=== PATIENT | female | born 1990 | race Caucasian/White ===

== ENCOUNTER → 2019-11-24 07:56 | Outpatient (BNVA) | payer BC, SELFPAY | PROVIDERS: Family Provider Family Medicine; Visit Provider Obstetrics & Gynecology | DX: Z01.89 Encounter for other specified special examinations (principal) ==

== ENCOUNTER → 2020-11-29 09:35 | Outpatient (BNVA) | payer BC, SELFPAY | PROVIDERS: Family Provider Family Medicine; Visit Provider Obstetrics & Gynecology | DX: Z12.4 Encounter for screening for malignant neoplasm of cervix (principal) | CPT/HCPCS: 88175 ==

== ENCOUNTER 2021-04-25 17:18 | Outpatient (CLI) | payer BC, SELFPAY ==
--- NOTE | 2021-04-25 17:30 | MR_ITS ---
WS: [id number] MRI RIGHT KNEE HISTORY: INTERNAL DERANGEMENT COMPARISON: None available. Anterior cruciate ligament: Intact. Posterior cruciate ligament: Intact. Medial collateral ligament: Very small amount of increased T2 signal within the superior MCL but no f ull-thickness tear. Posterior lateral corner structures: Intact. Medial menisci: Intact. Normal signal, size and shape. Lateral meniscus: Intact. Normal signal, size and shape. Extensor mechanism: Distal quadriceps tendon and patellar tendons are intact. Fluid and soft tissue: Small suprapatellar joint effusion. No Gerardo's cyst. Osseous and articular structures: Patellofemoral compartment: Very mild surface irregularity involving the cartilage of the patella. No marrow edema or full-thickness defect. Medial compartment: Mild narrowing medial compartment with surface irregularity of the weightbearing surface along the femoral condyle cartilage. There is a additional increased T2 signal extending thro ugh the cartilage of the femoral condyle. Probably a focal area demyelination. There is no underlying marrow edema. Lateral compartment: Unremarkable. MR/MR knee RT wo con* [id number] IMPRESSION: 1. Mild narrowing medial compartment with mild chondromalacia. 2. Additional delamination involving the weightbearing surface of the medial f emoral condyle. 3. Very mild patellar chondromalacia. 4. No marrow edema or fracture.
== END 2021-04-25 17:19 | disposition home or self-care (01) ==
LOC: RADSHAW 17:26
PROVIDERS: PCP Family Medicine; Visit Provider Orthopaedic Surgery
DX: M23.91 Unspecified internal derangement of right knee (principal); M22.41 Chondromalacia patellae, right knee
CPT/HCPCS: 73721

== ENCOUNTER → 2021-12-05 14:07 | Outpatient (BNVA) | payer BC, SELFPAY | PROVIDERS: PCP Family Medicine; Visit Provider Obstetrics & Gynecology | DX: Z12.4 Encounter for screening for malignant neoplasm of cervix (principal) | CPT/HCPCS: 87624 ==

== ENCOUNTER → 2022-03-24 08:15 | Outpatient (BNVA) | payer BC, SELFPAY | PROVIDERS: PCP Family Medicine | DX: K91.2 Postsurgical malabsorption, not elsewhere classified (principal); Z13.21 Encounter for screening for nutritional disorder; Z98.84 Bariatric surgery status | CPT/HCPCS: 80053; 80061; 82306; 82607; 82746; 83735; 85025 ==

== ENCOUNTER 2022-09-06 06:00 | Outpatient (RCR) | payer BC, SELFPAY | END 2022-09-23 23:59 | disposition home or self-care (01) | LOC: TPT 06:00 | PROVIDERS: PCP Family Medicine; Visit Provider Physician Assistant Surgical | DX: Z47.89 Encounter for other orthopedic aftercare (principal) | CPT/HCPCS: 97110; 97162 ==

== ENCOUNTER 2022-09-24 06:00 | Outpatient (RCR) | payer BC, SELFPAY | END 2022-10-24 23:59 | disposition home or self-care (01) | LOC: TPT 06:00 | PROVIDERS: PCP Family Medicine; Visit Provider Physician Assistant Surgical | DX: Z47.89 Encounter for other orthopedic aftercare (principal) | CPT/HCPCS: 97110; 97140 ==

== ENCOUNTER 2022-10-25 06:00 | Outpatient (RCR) | payer BC, SELFPAY | END 2022-11-09 23:59 | disposition home or self-care (01) | LOC: TPT 06:00 | PROVIDERS: PCP Family Medicine; Visit Provider Physician Assistant Surgical | DX: Z47.89 Encounter for other orthopedic aftercare (principal) | CPT/HCPCS: 97110 ==

== ENCOUNTER 2023-01-02 06:00 | Outpatient (RCR) | payer BC, SELFPAY | END 2023-01-21 23:59 | disposition home or self-care (01) | LOC: TPT 06:00 | PROVIDERS: Visit Provider Nurse Practitioner Family | DX: Z47.89 Encounter for other orthopedic aftercare (principal); M25.561 Pain in right knee | CPT/HCPCS: 97110; 97161 ==

== ENCOUNTER 2023-01-22 06:00 | Outpatient (RCR) | payer BC, SELFPAY | END 2023-02-21 23:59 | disposition home or self-care (01) | LOC: TPT 06:00 | PROVIDERS: Visit Provider Nurse Practitioner Family | DX: Z47.89 Encounter for other orthopedic aftercare (principal) | CPT/HCPCS: 97110 ==

== ENCOUNTER 2023-02-22 06:00 | Outpatient (RCR) | payer BC, SELFPAY | END 2023-03-01 23:59 | disposition home or self-care (01) | LOC: TPT 06:00 | PROVIDERS: Visit Provider Nurse Practitioner Family | DX: Z47.89 Encounter for other orthopedic aftercare (principal) | CPT/HCPCS: 97110 ==

== ENCOUNTER → 2023-03-12 15:00 | Outpatient (BNVA) | payer BC, SELFPAY | PROVIDERS: Visit Provider Obstetrics & Gynecology | DX: R87.810 Cervical high risk human papillomavirus (HPV) DNA test positive (principal) | CPT/HCPCS: 87624 ==

== ENCOUNTER → 2023-07-25 11:54 | Outpatient (BNVA) | payer BC, SELFPAY | PROVIDERS: Visit Provider Nurse Practitioner Family | DX: J32.0 Chronic maxillary sinusitis (principal); R05.9 Cough, unspecified | CPT/HCPCS: 87486; 87581; 87633 ==

== ENCOUNTER 2024-06-02 06:00 | Outpatient (CLI) | payer SELFPAY ==
--- NOTE | 2024-06-02 | USR_ITS ---
PROCEDURE INFORMATION: Exam: US After First Trimester, Transabdominal Exam date and time: 06/02/2024 8:17 AM Age: 33 years old Clinical indication: Screening exam; Routine US, uterus; Additional info: Normal in multigravida TECHNIQUE: Imaging protocol: Real-time transabdominal obstetrical ultrasound of the maternal pelvis and a second or third trimester with image documentation. COMPARISON: No relevant prior studies available. FINDINGS: Gestation: Single live intrauterine gestation. heart rate: 145 bpm. presentation and position: Vertex Placenta: Unremarkable. No subchorionic bleed. Placenta is posterior. No obvious previa. Amniotic fluid (Qualitative): Amniotic fluid is normal for gestational age. Amniotic fluid index: Not calculated ANATOMY: midline falx: Not evaluated cerebellum: Normal lateral ventricles: Normal cisterna magna: Normal choroid plexus: Not evaluated face: Upper lip is not evaluated heart four-chamber view, heart size and position: Identified heart right ventricular outflow tract: Not well seen heart left ventricular outflow tract: Not well seen kidneys: Normal stomach: Normal urinary bladder: Normal spine: Normal Umbilical cord and insertion: Normal upper limbs: Not evaluated lower limbs: Not evaluated external genitalia: Not evaluated BIOMETRY: Gestational age (AUA): 19 weeks and 6 days Estimated due date (AUA): October 21, 2024 Estimated weight: 315 g or 11 oz. This is the 50.5 percentile. Biparietal diameter (BPD): 19 weeks and 6 days. 4.58 cm which is the 55.9 percentile. Head circumference (HC): 19 weeks and 6 days. 17.38 cm which is the 52.3 percentile. Abdominal circumference (AC): 19 weeks and 6 days. 14.53 cm which is the 49.1 percentile. Femur length (FL): 19 weeks and 6 days. 3.15 cm which is the 45.1 percentile. biometric ratios: The CI ratio is 73%. The femur length to abdominal circumference ratio is 22%. The head circumference to abdominal circumference ratio is 1.2. The femur length to biparietal diameter ratio is 69%. The femur length to head circumference ratio is 0.18. MATERNAL: Uterus: Otherwise, unremarkable. Cervix: Most of the maternal cervix is obscured by shadowing. Right ovary/adnexa: Not evaluated. Left ovary/adnexa: Not evaluated. Intraperitoneal space: No intraperitoneal free fluid identified. US/US OB >= 14 weeks fetus [id number] IMPRESSION: 1. The maternal cervix is mostly obscured by shadowing. 2. survey as above. 3. Otherwise, unremarkable obstetrical ultrasound.
== END 2024-06-02 06:01 | disposition home or self-care (01) ==
LOC: RADOUTREAD 06-03 08:04
PROVIDERS: Visit Provider Family Medicine
DX: Z34.80 Encounter for supervision of other normal pregnancy, unspecified trimester (principal)

== ENCOUNTER 2024-09-19 14:33 | Outpatient (CLI) | payer SELFPAY ==
[2024-09-19 14:40] VITALS: BP 162/100; PULSE 107
[2024-09-19 14:47] VITALS: BMI 39.3
[2024-09-19 14:55] VITALS: BP 124/72; PULSE 85
[2024-09-19 15:09] VITALS: BP 123/70; PULSE 83
[2024-09-19 15:24] VITALS: BP 121/67; PULSE 82
[2024-09-19 15:32] VITALS: BP 121/67; PULSE 82; RESP 16
== END 2024-09-19 15:32 | disposition home or self-care (01) ==
LOC: OPOB 14:34 → OBGYN 14:34
PROVIDERS: Visit Provider Family Medicine
DX: O36.8190 Decreased fetal movements, unspecified trimester, not applicable or unspecified (principal); Z3A.00 Weeks of gestation of pregnancy not specified
CPT/HCPCS: 59025; 99211

== ENCOUNTER 2024-09-25 17:31 | Outpatient (CLI) | payer SELFPAY ==
[2024-09-25] VITALS (10 sets, daily range): BP systolic 130–151; BP diastolic 70–86; PULSE 73–85; RESP 17; O2SAT 99; BMI 40.2
[2024-09-25 19:18] LABS: Basophils % 0.2 %; Eosinophils % 0.3 %; Hematocrit 38.4 % (36-47); Lymphocytes # 1.9 10^3/uL (0.8-4.8); Lymphocytes % 21.8 %; Mean Corpuscular HGB Conc 31.3 g/dL (30-55); Mean Corpuscular Hemoglobin 30.5 pg (27-33); Mean Corpuscular Volume 97.7 fl (85-98); Mean Platelet Volume 12.7 fL (7.4-10.4); Monocytes # 0.4 10^3/uL (0.2-0.9); Monocytes % 4.9 %; Neutrophils # 6.22 10^3/uL (1.8-7.7); Neutrophils % 72.6 %; Nucleated Red Blood Cells % 0 %; Platelet Count 154 10^3/cmm (157-399); Red Blood Count 3.93 10^6/uL (3.85-5.65); Red Cell Distribution Width 13.7 % (12.1-15.1); White Blood Count 8.58 10^3/uL (3.29-11.43)
[2024-09-25 19:19] LABS: Bilirubin Urine Negative (Negative); Blood Urine Negative (Negative); Glucose Urine UA Negative (Normal); Ketones Urine Negative (Negative); Leukocyte Esterase Urine Trace (Negative); Nitrate Urine Negative (Negative); Protein Urine Negative (Negative); Specific Gravity, Urine 1.007 (1.005-1.030); Urine Appearance Clear (CLEAR); Urine Color Yellow (Yellow); Urobilinogen Urine 0.2 mg/dL (Negative); pH Urine 5.5 (5-7)
[2024-09-25 19:24] LABS: Add Urine Microscopic? YES; Bacteria Urine 1+ /hpf; Hyaline Casts Urine 0.81 /lpf; RBC Urine 0-2 /hpf (0-2)
[2024-09-25 19:34] LABS: Alanine Aminotransferase < 5 U/L (0-33); Albumin Level 3.6 g/dL (3.5-5.2); Alkaline Phosphatase 165 U/L (35-105); Anion Gap 16.7 (5-19); Aspartate Amino Transferase 19 U/L (0-32); Blood Urea Nitrogen 5 mg/dL (6-20); Calcium 9.4 mg/dL (8.5-10.5); Carbon Dioxide 20 mmol/L (22-29); Chloride 103 mmol/L (98-107); Globulin 3.3 g/dL (1.3-4.6); Glomerular Filtration Rate 182.7 mL/min (90-130); Glucose 84 mg/dL (65-115); Osmolality Calculated 278 mOsm/kg (285-295); Potassium 3.7 mmol/L (3.5-5.1); Sodium 136 mmol/L (136-145); Total Bilirubin 0.2 mg/dL (0.15-1.2); Total Protein 6.9 g/dL (6.6-8.7); Uric Acid 5.6 mg/dL (2.4-5.7)
[2024-09-25 19:36] LABS: Urine Creatinine 35 mg/dL (28-217); Urine Protein Random 5 mg/dL
[2024-09-25 19:37] LABS: UPRO/UCREAT Ratio 0.14 mg/mg CR
[2024-09-25 19:46] LABS: UA Slide Review UA Slide Review Perf
== END 2024-09-25 19:56 | disposition home or self-care (01) ==
LOC: OPOB 17:31 → OBGYN 17:32
PROVIDERS: PCP Family Medicine; Visit Provider Family Medicine
DX: O24.419 Gestational diabetes mellitus in pregnancy, unspecified control (principal); Z3A.00 Weeks of gestation of pregnancy not specified; O09.529 Supervision of elderly multigravida, unspecified trimester
CPT/HCPCS: 36415; 59025; 80053; 81001; 82570; 84156; 84550; 85025; 99211

== ENCOUNTER 2024-10-01 21:45 | Inpatient (IN) | payer SELFPAY ==
[2024-10-01] VITALS (21 sets, daily range): BP systolic 110–155; BP diastolic 64–88; PULSE 70–111; RESP 16; TEMP 36.4–36.6; O2SAT 99–100; BMI 39.9
[2024-10-01 16:46] LABS: Basophils % 0.2 %; Eosinophils % 0.1 %; Hematocrit 36.3 % (36-47); Lymphocytes # 1.5 10^3/uL (0.8-4.8); Lymphocytes % 18.4 %; Mean Corpuscular HGB Conc 32.2 g/dL (30-55); Mean Corpuscular Hemoglobin 30.2 pg (27-33); Mean Corpuscular Volume 93.8 fl (85-98); Mean Platelet Volume 13.1 fL (7.4-10.4); Monocytes # 0.4 10^3/uL (0.2-0.9); Monocytes % 4.3 %; Neutrophils # 6.43 10^3/uL (1.8-7.7); Neutrophils % 76.6 %; Nucleated Red Blood Cells % 0 %; Platelet Count 159 10^3/cmm (157-399); Red Blood Count 3.87 10^6/uL (3.85-5.65); Red Cell Distribution Width 13.7 % (12.1-15.1); White Blood Count 8.39 10^3/uL (3.29-11.43)
[2024-10-01 16:46] LABS: Bilirubin Urine Negative (Negative); Blood Urine Negative (Negative); Glucose Urine UA 2+ (Normal); Ketones Urine Negative (Negative); Leukocyte Esterase Urine Negative (Negative); Nitrate Urine Negative (Negative); Protein Urine Negative (Negative); Specific Gravity, Urine 1.006 (1.005-1.030); Urine Appearance Clear (CLEAR); Urine Color Yellow (Yellow); Urobilinogen Urine 0.2 mg/dL (Negative); pH Urine 5.5 (5-7)
[2024-10-01 16:48] LABS: Add Urine Microscopic? YES; Bacteria Urine Trace /hpf; RBC Urine 0-2 /hpf (0-2); Squamous Epithelial Cell Urine 0-5 /hpf (0-5); WBC Urine 0-5 /hpf (0-5)
[2024-10-01 17:03] LABS: Alanine Aminotransferase 6 U/L (0-33); Albumin Level 3.4 g/dL (3.5-5.2); Alkaline Phosphatase 160 U/L (35-105); Anion Gap 13.9 (5-19); Aspartate Amino Transferase 17 U/L (0-32); Blood Urea Nitrogen 7 mg/dL (6-20); Calcium 8.9 mg/dL (8.5-10.5); Carbon Dioxide 22 mmol/L (22-29); Chloride 107 mmol/L (98-107); Globulin 2.8 g/dL (1.3-4.6); Glomerular Filtration Rate 182.7 mL/min (90-130); Glucose 88 mg/dL (65-115); Osmolality Calculated 285 mOsm/kg (285-295); Potassium 3.9 mmol/L (3.5-5.1); Sodium 139 mmol/L (136-145); Total Bilirubin 0.2 mg/dL (0.15-1.2); Total Protein 6.2 g/dL (6.6-8.7); Uric Acid 5.1 mg/dL (2.4-5.7)
[2024-10-01 17:08] LABS: Urine Creatinine 16 mg/dL (28-217); Urine Protein Random 4 mg/dL
[2024-10-01 17:10] LABS: Slide Review Slide Review Perform
[2024-10-01 17:11] LABS: UPRO/UCREAT Ratio 0.25 mg/mg CR
[2024-10-01] MEDS: sodium chloride 0.9% 1,000 ML 125 ML IV (21:00)
--- NOTE | 2024-10-01 21:01 | PM.OBGYHP ---
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 At home she checked her blood pressure 5-6 times and each time her systolic blood pressures greater than 140. On top of that she had been having some blurry vision and headache. She states that she does have migraines intermittently but the blurred vision is unusual for her. She came to the hospital for triage and was found to have multiple blood pressures at reliability once again. A preeclamptic workup was done which was found to be negative. Present Details : 2 Para: 1 Labs Rubella: Immune RPR: Negative GBS: Negative Review of Systems General: Reports: 10 or more systems reviewed and unremarkable except in HPI and below Const: Reports: fatigue; Denies: fever(s) Card: Denies: chest pain Musc: Reports: back pain Emil/Lymph: Denies: easy bruising Medications/Allergies Home Medications Medication Instructions Recorded Confirmed Last Taken Type Baby Aspirin 84 caplet PO 1XD 09/19/24 09/25/24 Unknown History duloxetine 30 mg capsule,delayed See Rx Instructions .Route .COMPLEX 09/19/24 09/25/24 Unknown History release (Cymbalta) Allergies Allergy/AdvReac Type Severity Reaction Status Date / Time No Known Allergies Allergy Verified 03/12/23 08:49 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 Verdin Fibromyalgia Diagnosed in 2019 and is on medication managed by primary care provider. This was diagnosed by client reporting associate Migraine Migraines as a child and has gotten worse since her delivery in 2014-reports migraines with aura and has neurological symptoms. Follows up with neurologist-Dr. Nuno in [place]--follows up every 6 months and is on Emgality Surgical History S/P gastric sleeve procedure 02/02/2021, performed by Dr. Luciano in [place], [place]---laparoscopic procedure History of cholecystectomy (11/20/16) Laparoscopic. Diagnoses: Symptomatic cholelithiasis. Performed [place]. Ellington [place] [facility] History of section, low transverse (08/26/16) Low transverse section (confirmed by operative report). Performed at [facility] in [place], [place]. Family History Grandmother Hypertension paternal Diabetes paternal Breast cancer paternal, diagnosed at age 61 and 73 (Two different types) Grandfather Diabetes maternal Heart disease maternal and paternal Father Stroke Mother Breast cancer diagnosed at age 45 Denies family history of Colon cancer Ovarian cancer Hyperlipidemia Uterine cancer Thyroid disease Social History Substance/Drug Use: never Other Female Reproductive History: Hx Age of Menarche: 11 Personal Safety: Do you feel safe at home: Yes Victim of physical abuse: No Victim of emotional abuse: No Victim of sexual abuse: No History History History 2 Term 0 1 Miscarriages/Ectopic 0 Living Children 1 Vitals/I&O/Wt Last Vital Signs Pulse 88 10/01/24 18:52 BP 133/75 10/01/24 18:52 O2 Del Method Room Air 10/01/24 16:33 Weight last 48 hrs Weight 218 lb Physical Exam Const: COMMON NORMALS: patient oriented x3 and alert HENMT: COMMON NORMALS: moist oral mucous membranes HEAD & SCALP: normal to inspection Chest: COMMONS NORMALS: normal inspection of the chest Resp: COMMON NORMALS: clear to auscultation bilaterally AUSCULTATION: clear to auscultation bilaterally Cardio: COMMON NORMALS: regular rate and regular rhythm RATE: regular rate RHYTHM: regular rhythm GI: INSPECTION: Yes normal to inspection and Yes other (Gravid) Extremity: COMMON NORMALS: normal to inspection GENERAL: Yes edema (Trace) Neuro: COMMON NORMALS: patient oriented x3, moves all extremities and no sensory deficits noted SENSORIUM/ORIENTATION: Yes alert Psych: COMMON NORMALS: mental status grossly normal Skin: COMMON NORMALS: no rashes or lesions noted GENERAL SKIN EXAM: no rashes or lesions noted Data 10/01/24 16:00 10/01/24 16:00 Results Labs OB ([facility]): Obstetrics US 07/14/24 Blood Type A Positive 10/01/24 Antibody Screen Negative 10/01/24 Hct 36.3 % (36-47) 10/01/24 Hgb 11.70 g/dL (11.27-16.99) 10/01/24 Rho(D) Type Rh positive 10/01/24 Plt Count 159 10^3/cmm (157-399) 10/01/24 Uric Acid 5.1 mg/dL (2.4-5.7) 10/01/24 Pap Smear Interpret See note 03/12/23 A&P Assessment and plan (1) 37 weeks gestation of : Due to the patient's multiple elevated blood pressures we will proceed with delivery of the baby. While she did have a scheduled, we will proceed with a this evening. We discussed the risk with the patient and her once again. They have no further questions and wished to proceed. Thankfully her blood pressures have mostly been elevated, but not in the severe range. Magnesium is not indicated at this time. (2) History of section: (3) induced hypertension: Attestations Medical Necessity Statement*: I anticipate routine and post care. Will monitor for progression for symptoms consistent with progressing preeclampsia Coding Level of Care Code Acute Code for Chg Fwd Diagnoses 37 weeks gestation of Z3A.37 History of section Z98.891 induced hypertension O13.9
[2024-10-01] MEDS: citric acid-sodium citrate 30 mL UDC PO (21:27)
[2024-10-01] MEDS: ceFAZolin 2,000 mg SDV 2000 MG IVP (21:27)
[2024-10-01] MEDS: famotidine 20 mg/2 mL INJ IVP (21:27)
[2024-10-01] MEDS: metoclopramide 5 mg/mL SDV 2 mL 10 MG IVP (21:27)
--- NOTE | 2024-10-01 21:42 | P.ANESASSM_ITS ---
Pre-Anesthetic Assessment Height/Weight: Height 1.57 m Weight 98.883 kg Pulse BP O2 Del Method 74 143/84 Room Air 10/01/24 21:25 10/01/24 21:25 10/01/24 16:33 Familial anesthetic complications: NV Was Beta Jorge taken within 24 hours: N/A Was Clonidine taken within 24 hours: N/A Last intake: 1400 Social No alcohol and No tobacco Exam alert, oriented x 3, clear to auscultation bilaterally and regular rate & rhythm Airway Submandibular: within normal limits Cervical ROM: within normal limits Mallampati: Class III Dentition: full History/ROS No significant history except as noted Pulmonary None reported CV/HEM Hypertension None reported Hepatic None reported GI Gastroesophageal Reflux Disease Gastric sleeve 2020 Metabolic Morbid Obesity [facility] Lower Back Pain Neuropsych Anxiety Anesthetic Plan ASA status: 3 Anesthesia: Anesthesia Evaluation, General and Regional (specify below) (SAB) Risk of > 500 ml blood loss (7ml/kg in children): Yes, adequate IV access and fluids planned Medications/Allergies Home Medications Medication Instructions Recorded Confirmed Last Taken Type Baby Aspirin 84 caplet PO 1XD 09/19/24 09/25/24 Unknown History duloxetine 30 mg capsule,delayed See Rx Instructions .Route .COMPLEX 09/19/24 09/25/24 Unknown History release (Cymbalta) Allergies Allergy/AdvReac Type Severity Reaction Status Date / Time No Known Allergies Allergy Verified 03/12/23 08:49 Current Medications Generic Name Dose Route Start Last Admin Trade Name Freq PRN Reason Stop Dose Admin Sodium Chloride 1,000 mls @ 125 mls/hr 10/01/24 20:00 10/01/24 21:00 Sodium Chloride 0.9% IV 125 mls/hr .Q8H FELIPE Administration PFS Anesthesia Medical History No pertinent past medical history Denies diabetes, asthma, hypertension, seizures, DVT/PE PCP: Dr. Verdin Fibromyalgia Diagnosed in 2019 and is on medication managed by primary care provider. This was diagnosed by nurse monitoring Migraine Migraines as a child and has gotten worse since her delivery in 2015-reports migraines with aura and has neurological symptoms. Follows up with neurologist-Dr. Nuno in [place]--follows up every 6 months and is on Emgality Surgical History S/P gastric sleeve procedure 02/02/2021, performed by Dr. Luciano in [place], [place]---laparoscopic procedure History of cholecystectomy (11/20/16) Laparoscopic. Diagnoses: Symptomatic cholelithiasis. Performed by Dr. Ellington at [facility] History of section, low transverse (08/26/16) Low transverse section (confirmed by operative report). Performed at [facility] in [place], [place]. Family History Grandmother Hypertension paternal Diabetes paternal Breast cancer paternal, diagnosed at age 61 and 73 (Two different types) Grandfather Diabetes maternal Heart disease maternal and paternal Father Stroke Mother Breast cancer diagnosed at age 45 Denies family history of Colon cancer Ovarian cancer Hyperlipidemia Uterine cancer Thyroid disease Social History Substance/Drug Use: never Female Reproductive History : 2 Data Anesthesia 10/02/24 05:30 10/01/24 16:00 Short CBC 10/01/24 Range/Units 16:00 WBC 8.39 (3.29-11.43) 10^3/uL Hgb 11.70 (11.27-16.99) g/dL Hct 36.3 (36-47) % MCV 93.8 (85-98) fl Plt Count 159 (157-399) 10^3/cmm Neut % (Auto) 76.6 % Neut # (Auto) 6.43 (1.8-7.7) 10^3/uL BMP 10/01/24 16:00 Sodium 139 Potassium 3.9 Chloride 107 Carbon Dioxide 22 BUN 7 Creatinine 0.4 L Glucose 88 Calcium 8.9 Liver Function 10/01/24 Range/Units 16:00 Total Bilirubin 0.2 (0.15-1.2) mg/dL AST 17 (0-32) U/L ALT 6 (0-33) U/L Alkaline Phosphatase 160 H (35-105) U/L Albumin 3.4 L (3.5-5.2) g/dL Urine 10/01/24 Range/Units 15:05 Urine Color Yellow (Yellow) Urine Appearance Clear (CLEAR) Urine pH 5.5 (5-7) Ur Specific Trout 1.006 (1.005-1.030) Urine Protein Negative (Negative) Urine Glucose (UA) 2+ H (Normal) Urine Ketones Negative (Negative) Urine Nitrate Negative (Negative) Urine Bilirubin Negative (Negative) Ur Leukocyte Esterase Negative (Negative) Urine RBC 0-2 (0-2) /hpf Urine WBC 0-5 (0-5) /hpf Blood Bank 10/01/24 16:00 Blood Type A Positive Rho(D) Type Rh positive Antibody Screen Negative Cardiac Studies: 2 No Data to Display
[2024-10-01] MEDS: BUPivacaine 0.5% INJ 30 mL INJECTION (21:55)
--- NOTE | 2024-10-01 23:19 | PM.OP ---
Operative Report Date of procedure: October 01, 2024 Pre-op diagnosis: 34-year-old 2 para 0-1-0-1 at 37 weeks estimated gestational age with -induced hypertension and a history of section Post-op diagnosis: Post low-transverse section Procedure done: Low-transverse section Specimens removed/disposition: 1. Healthy appearing male with a weight of 6 pounds 0 ounces and Apgars of 8, 9 2. Placenta with a three-vessel cord delivered intact Surgeon: Raphael Guidry MD Estimated blood loss (mL): 500 Complications: None Procedure: The patient was brought back to the operating room where she was prepped and draped in usual sterile fashion. Anesthesia was found to be adequate. A lower transverse skin incision was then made with a #10 blade. I then dissected down to the underlying subcutaneous tissue until arriving at the prerectal fascia. The fascia was then nicked with the scalpel bilaterally. The fascial incisions were then carried laterally with Arnold scissors. Attention was then turned to the superior aspect of the incision which was grasped with kochers and tented up away from the underlying rectus abdominis muscles. The muscles were then dissected away from the fascia manually, and later with Arnold scissors. Attention was then turned to the inferior aspect of the incision, and the fascia was dissected away from the underlying muscle in similar fashion. The rectus abdominis muscles were then spread manually. The peritoneum was entered manually. Excellent visualization of the uterus was noted. A lower transverse uterine incision was then made with a #10 blade. Upon arriving at the intrauterine cavity, the uterine incision was then extended manually. The was noted to be in vertex position. The baby was delivered without difficulty. After delivery of the head, the mouth and nose were suctioned at the site of the incision. There was no meconium. A nuchal cord x 1 which was easily reduced prior to delivery of the shoulders. The baby was then completely delivered and placed on the abdomen. The cord was cut and clamped. The baby was then handed to Dr. Albarado in the waiting nurse.. The placenta was removed intact. I considered externalizing the uterus, but there were multiple adhesions and I elected to do the repair while leaving the uterus and the peritoneum. The intrauterine cavity was cleansed of any remaining debris. The uterine incision was reapproximated in 2 layers. The first layer was performed with 0 Vicryl in a running locked stitch. The second layer was an imbricating stitch also using 0 Vicryl. The uterus was replaced into the abdomen. The peritoneum was then irrigated with warm saline. I reexamined the uterine incision and found it to be hemostatic. The rectus abdominis muscles were then reapproximated using 0 Vicryl in a running stitch. The fascia was then reapproximated using 0 Vicryl in running stitch. The subcutaneous tissue was then reapproximated using 0 Vicryl running stitch. The skin was reapproximated using 4-0 Vicryl on a Stef needle in a running subcuticular stitch. Steri-Strips were placed. A sterile dressing was placed. All counts were correct x2. Both the mother and baby were in stable condition.
[2024-10-02] VITALS (17 sets, daily range): BP systolic 127–195; BP diastolic 63–107; PULSE 60–130; TEMP 37.1
--- NOTE | 2024-10-02 02:01 | PC.NURSE ---
patient puking with arm bent during blood pressure being taken. blood pressure inaccurate
[2024-10-02] MEDS: ondansetron 2 mg/ML SDV 2 mL 4 MG IVP (03:19)
[2024-10-02] MEDS: ketorolac 30 mg/mL INJ IVP ×3 (05:24→17:30)
[2024-10-02 05:37] LABS: Hematocrit 34.1 % (36-47); Mean Corpuscular HGB Conc 32.3 g/dL (30-55); Mean Corpuscular Hemoglobin 30.2 pg (27-33); Mean Corpuscular Volume 93.7 fl (85-98); Mean Platelet Volume 12.9 fL (7.4-10.4); Platelet Count 146 10^3/cmm (157-399); Red Blood Count 3.64 10^6/uL (3.85-5.65); Red Cell Distribution Width 13.5 % (12.1-15.1); White Blood Count 13.14 10^3/uL (3.29-11.43)
[2024-10-02] MEDS: sodium chloride 0.9% 1,000 ML 500 ML IV ×2 (06:24→08:58)
--- NOTE | 2024-10-02 06:36 | PM.OBGYPN ---
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 Her blood pressures have been mildly elevated. Her vitals have been stable. Her bleeding has been within normal limits. Her pain has been well-controlled. Labor: Amniotic Membrane Status: Intact Monitor Mode: External Contraction Pattern: Irregular Vitals/I&O/Wt Last Vital Signs Temp 98.7 F 10/02/24 00:45 Pulse 72 10/02/24 06:24 Resp 16 10/01/24 23:55 BP 138/84 10/02/24 06:24 Pulse Ox 100 10/01/24 23:55 O2 Del Method Room Air 10/01/24 23:55 10/01/24 10/01/24 10/02/24 14:59 22:59 06:59 Intake Total 800 / 800 Output Total 830 / 830 Balance -30 / -30 Weight last 48 hrs Weight 218 lb Physical Exam Narrative: She is in no acute distress Lungs are clear auscultation bilaterally Her heart has a regular rate and rhythm Her fundus is below the umbilicus and firm Her dressing is clean, dry and intact Her extremities have trace edema Urinary Catheter Management: Eldridge: Cath Placed During This Visit: yes Urinary Catheter Date of Insertion: 10/01/24 Urinary Catheter Time of Insertion: 22:10 Data 10/02/24 05:30 10/01/24 16:00 A&P Assessment and plan (1) induced hypertension: So far, the patient has done very well. Her hypertension appears to be improving. She is having no other symptoms of preeclampsia. Her recovery from surgery appears to be within normal limits. (2) Status post : She appears to be recovering appropriately. I anticipate she will be discharged tomorrow. (3) 37 weeks gestation of : Attestations Medical Necessity Statement*: Post care, as well as care for -induced hypertension. Coding Level of Care Code Acute Code for [facility] Fwd Diagnoses induced hypertension O13.9 Status post Z98.891 37 weeks gestation of Z3A.37
--- NOTE | 2024-10-02 07:52 | ANE.PACU2 ---
Inpatient post-anesthesia follow up: Airway intact: Yes Vital signs: Temperature 98.7 F Pulse Rate 72 Respiratory Rate 16 Blood Pressure 138/84 Pulse Oximetry 100 Oxygen Delivery Me thod Room Air Oxygen Flow Rate Fraction of Inspir ed Oxygen Hydration adequate: Yes Nausea and vomiting: No Pain level: 2 Mental status: Baseline
[2024-10-02] MEDS: PRENATAL VIT NO.130/IRON/FOLIC 1 EACH TABLET PO (08:57)
[2024-10-02] MEDS: docusate sodium 100 mg Capsule PO ×2 (08:57→17:30)
--- NOTE | 2024-10-02 09:24 | PC.NURSE ---
Pt took 30mg of her cymbalta PO x1 this morning at 0900.
[2024-10-02] MEDS: HYDROcodone-acetaminophen 5-325 mg Tablet PO (20:59)
[2024-10-03] MEDS: HYDROcodone-acetaminophen 5-325 mg Tablet PO ×2 (01:53→07:31)
[2024-10-03 03:59] VITALS: BP 127/66; PULSE 80
[2024-10-03] MEDS: lanolin oint 7 gm 1 APPLIC TOPICAL (07:31)
[2024-10-03] MEDS: docusate sodium 100 mg Capsule PO (07:32)
[2024-10-03] MEDS: PRENATAL VIT NO.130/IRON/FOLIC 1 EACH TABLET PO (07:32)
--- NOTE | 2024-10-03 09:49 | P.DS_ITS ---
Discharge Providers [employer] Date of Admission: 10/01/24 21:45 Date of Discharge: 10/03/24 Attending Provider at Admission: Raphael Guidry MD Attending Provider at Discharge: Raphael Guidry MD Primary Care Provider: Immanuel Verdin Diagnoses at Discharge Discharge Diagnosis (1) induced hypertension: Status: Acute (2) Status post : Status: Acute (3) 37 weeks gestation of : Status: Acute Reason for Visit Reason for Visit: NST for GDM, blood pressure checks Hospital Course Hospital Course The patient presented to the hospital complaining of elevated blood pressures at home. In the hospital she was confirmed to have multiple elevated blood pressures. Because she her gestational age was greater than 37 weeks, we elected to proceed with a section. The was unremarkable. Her course was also unremarkable. Her blood pressures have been improving. Her bleeding was within normal limits. Her pain was well-controlled. She has been breast-feeding well. Information Peripartum Data: Infant Delivery Method: Physical Exam Narrative: She is in no acute distress Lungs are clear auscultation bilaterally Her heart has a regular rate and rhythm Her fundus is below the umbilicus and firm Her incision is clean, dry and intact Her extremities have trace edema Urinary Catheter Management: Eldridge: Cath Placed During This Visit: yes, but has since been removed by the nurse Reason for Continuing Indwelling Catheter: Decision to DC Catheter Urinary Catheter Date of Insertion: 10/01/24 Urinary Catheter Time of Insertion: 22:10 Date Urinary Catheter Removed: 10/02/24 Time Urinary Catheter Discontinued: 11:30 History History History 2 Term 0 1 Miscarriages/Ectopic 0 Living Children 1 Discharge Data Studies Completed and Pending Laboratory Results WBC 13.14 10^3/uL (3.29-11.43) H 10/02/24 05:30 RBC 3.64 10^6/uL (3.85-5.65) L 10/02/24 05:30 Hgb 11.00 g/dL (11.27-16.99) L 10/02/24 05:30 Hct 34.1 % (36-47) L 10/02/24 05:30 MCV 93.7 fl (85-98) 10/02/24 05:30 MCH 30.2 pg (27-33) 10/02/24 05:30 MCHC 32.3 g/dL (30-55) 10/02/24 05:30 RDW 13.5 % (12.1-15.1) 10/02/24 05:30 Plt Count 146 10^3/cmm (157-399) L 10/02/24 05:30 MPV 12.9 fL (7.4-10.4) H 10/02/24 05:30 Neut % (Auto) 76.6 % 10/01/24 16:00 Lymph % (Auto) 18.4 % 10/01/24 16:00 [place]ope % (Auto) 4.3 % 10/01/24 16:00 Eos % (Auto) 0.1 % 10/01/24 16:00 Baso % (Auto) 0.2 % 10/01/24 16:00 Neut # (Auto) 6.43 10^3/uL (1.8-7.7) 10/01/24 16:00 Lymph # (Auto) 1.5 10^3/uL (0.8-4.8) 10/01/24 16:00 Slope # (Auto) 0.4 10^3/uL (0.2-0.9) 10/01/24 16:00 Eos # (Auto) 0.0 10^3/uL (0.0-0.8) 10/01/24 16:00 Baso # (Auto) 0.0 10^3/uL (0.0-0.1) 10/01/24 16:00 Nucleated RBC % (auto) 0 % 10/01/24 16:00 Nucleated RBCs # 0.0 /100WBC 10/01/24 16:00 Sodium 139 mmol/L (136-145) 10/01/24 16:00 Potassium 3.9 mmol/L (3.5-5.1) 10/01/24 16:00 Chloride 107 mmol/L (98-107) 10/01/24 16:00 Carbon Dioxide 22 mmol/L (22-29) 10/01/24 16:00 Anion Gap 13.9 (5-19) 10/01/24 16:00 BUN 7 mg/dL (6-20) 10/01/24 16:00 Creatinine 0.4 mg/dL (0.5-0.9) L 10/01/24 16:00 GFR Calculation 182.7 mL/min (90-130) H 10/01/24 16:00 Glucose 88 mg/dL (65-115) 10/01/24 16:00 Calculated Osmolality 285 mOsm/kg (285-295) 10/01/24 16:00 Uric Acid 5.1 mg/dL (2.4-5.7) 10/01/24 16:00 Calcium 8.9 mg/dL (8.5-10.5) 10/01/24 16:00 Total Bilirubin 0.2 mg/dL (0.15-1.2) 10/01/24 16:00 AST 17 U/L (0-32) 10/01/24 16:00 ALT 6 U/L (0-33) 10/01/24 16:00 Alkaline Phosphatase 160 U/L (35-105) H 10/01/24 16:00 Total Protein 6.2 g/dL (6.6-8.7) L 10/01/24 16:00 Albumin 3.4 g/dL (3.5-5.2) L 10/01/24 16:00 Globulin 2.8 g/dL (1.3-4.6) 10/01/24 16:00 Urine Color Yellow (Yellow) 10/01/24 15:05 Urine Appearance Clear (CLEAR) 10/01/24 15:05 Urine pH 5.5 (5-7) 10/01/24 15:05 Ur Specific [place] 1.006 (1.005-1.030) 10/01/24 15:05 Urine Protein Negative (Negative) 10/01/24 15:05 Urine Glucose (UA) 2+ (Normal) H 10/01/24 15:05 Urine Ketones Negative (Negative) 10/01/24 15:05 Urine Blood Negative (Negative) 10/01/24 15:05 Urine Nitrate Negative (Negative) 10/01/24 15:05 Urine Bilirubin Negative (Negative) 10/01/24 15:05 Urine Urobilinogen 0.2 mg/dL (Negative) 10/01/24 15:05 Ur Leukocyte Esterase Negative (Negative) 10/01/24 15:05 Urine RBC 0-2 /hpf (0-2) 10/01/24 15:05 Urine WBC 0-5 /hpf (0-5) 10/01/24 15:05 Ur Squamous Epith Cells 0-5 /hpf (0-5) 10/01/24 15:05 Amorphous Sediment Not Reportable 10/01/24 15:05 Urine Bacteria Trace /hpf (NONE) 10/01/24 15:05 Hyaline Casts 0.40 /lpf 10/01/24 15:05 U Random Total Protein 4 mg/dL 10/01/24 15:05 Urine Creatinine 16 mg/dL (28-217) L 10/01/24 15:05 Protein/Creatinin Ratio 0.25 mg/mg CR 10/01/24 15:05 Blood Type A Positive 10/01/24 16:00 Rho(D) Type Rh positive 10/01/24 16:00 Antibody Screen Negative 10/01/24 16:00 Vitals Last Vital Signs Temp 98.7 F 10/02/24 00:45 Pulse 80 10/03/24 03:59 Resp 16 10/01/24 23:55 BP 127/66 10/03/24 03:59 Pulse Ox 100 10/01/24 23:55 O2 Del Method Room Air 10/01/24 23:55 Results Labs OB ([facility]): Obstetrics US 07/14/24 Blood Type A Positive 10/01/24 Antibody Screen Negative 10/01/24 Hct 34.1 % (36-47) L 10/02/24 Hgb 11.00 g/dL (11.27-16.99) L 10/02/24 Rho(D) Type Rh positive 10/01/24 Plt Count 146 10^3/cmm (157-399) L 10/02/24 Uric Acid 5.1 mg/dL (2.4-5.7) 10/01/24 Pap Smear Interpret See note 03/12/23 Discharge Plan Discharge Patient Disposition: Home Condition: Stable Prescriptions: New ibuprofen 800 mg Tablet 800 mg PO TID Qty: 30 0RF hydrocodone-acetaminophen 5-325 mg Tablet 1 tab PO Q6H PRN (Reason: Moderate To Severe Pain) Qty: 28 0RF Continued duloxetine [Cymbalta] 30 mg Capsule,Delayed Release(Dr/Ec) See Rx Instructions .ROUTE .COMPLEX Protocol: Age Greater than 75 Protocol Text: Age less than 75 years, to be administred with initial in subcutaneous dose Rx Instructions: one a day Discontinued Baby Aspirin capsule 84 caplet PO 1XD Discharge Orders: Discharge Order (Routine); Ordered 10/03/24 Ordered By: Raphael Guidry Referrals: Raphael Guidry MD [Physician] - 10/06/24 10:50 am Discharge Diet: Usual diet Discharge Activity: Limit activity as instructed Patient Instructions: Hydrocodone/Acetaminophen (By mouth), Ibuprofen (By mouth), Depression (DC), and Nipple Soreness (DC), Opioid Safety (DC), Preeclampsia and Eclampsia After Delivery (GEN), Hemorrhage (DC), OB - Chao/Prakash, OB Discharge Report, OB Food/Drug Interaction Guide, OB Care at Home, Opioid Safety, Abnormal Bleeding Discharge Attestations [employer] Time Spent in Discharge Care*: less than 30 min Coding Level of Care Code Acute Code for Chg Fwd Diagnoses induced hypertension O13.9 Status post Z98.891 37 weeks gestation of Z3A.37
[2024-10-03 10:24] VITALS: BP 138/76; PULSE 84
[2024-10-03 10:50] VITALS: BP 138/76; PULSE 84; RESP 16; TEMP 36.9; O2SAT 98
== END 2024-10-03 10:50 | disposition home or self-care (01) | DRG 788 ==
LOC: OPOB 21:47 → OBGYN 21:47
PROVIDERS: Admitting Provider Family Medicine; PCP Family Medicine; Visit Provider Family Medicine
PROC: 10D00Z1 Extraction of Products of Conception, Low, Open Approach (ICD-10-PCS; CPT 59514; principal; 2024-10-01 22:00)
DX: O13.9 Gestational [pregnancy-induced] hypertension without significant proteinuria, unspecified trimester (principal); O13.4 Gestational [pregnancy-induced] hypertension without significant proteinuria, complicating childbirth; Z3A.37 37 weeks gestation of pregnancy; Z98.891 History of uterine scar from previous surgery; Z37.0 Single live birth; O34.211 Maternal care for low transverse scar from previous cesarean delivery; Z98.84 Bariatric surgery status; Z90.49 Acquired absence of other specified parts of digestive tract; O99.214 Obesity complicating childbirth; E66.01 Morbid (severe) obesity due to excess calories; O75.89 Other specified complications of labor and delivery; K21.9 Gastro-esophageal reflux disease without esophagitis; O69.81X0 Labor and delivery complicated by cord around neck, without compression, not applicable or unspecified; Z82.49 Family history of ischemic heart disease and other diseases of the circulatory system; Z83.3 Family history of diabetes mellitus; Z82.3 Family history of stroke; Z80.3 Family history of malignant neoplasm of breast
CPT/HCPCS: 36415; 51702; 59025; 59409; 80053; 81001; 82570; 84156; 84550; 85025; 85027; 86850; 86900; 96374; 98960; 99211; J0690; J1885; J2274; J2405; J2765; J3010; J3490; J7030